=== PATIENT | female | born 1965 | race Caucasian/White ===

== ENCOUNTER → 2020-12-29 | Outpatient (CLI) | payer OTHER ==
[~2020-12-29] MED LIST: CITALOPRAM HBR20 MG PO; HYDROCODON-ACE1 EAC6 PO; KEPPRA1000 MG PO; LISINOPRIL10 MG PO; PERCOCET 5-3251 EACH PO
== END ==
LOC: EXRD 11:31
DX: M79.642 Pain in left hand (principal); M79.641 Pain in right hand; G89.29 Other chronic pain; M54.9 Dorsalgia, unspecified
CPT/HCPCS: 72202; 73130